=== PATIENT | male | born 1975 | race Hispanic/Latino ===

== ENCOUNTER 2022-05-09 12:50 | Emergency (ER) | payer BC ==
[~2022-05-09] VITALS: Ht 170.2 cm; Wt 133.4 kg
[2022-05-09] MEDS ORDERED: ACETAMINOPHEN 500 MG TABLET PO SCH (14:30)
[2022-05-09 15:00] VITALS: BP 141/72
[2022-05-09] MEDS ORDERED: CYCL10TA16 PO (15:03)
== END 2022-05-09 15:27 | disposition home or self-care (01) ==
LOC: EDH 12:50
DX: S86.112A Strain of other muscle(s) and tendon(s) of posterior muscle group at lower leg level, left leg, initial encounter (principal); E11.9 Type 2 diabetes mellitus without complications; I10 Essential (primary) hypertension; Z79.899 Other long term (current) drug therapy; X50.9XXA Other and unspecified overexertion or strenuous movements or postures, initial encounter; Y93.89 Activity, other specified; Y92.89 Other specified places as the place of occurrence of the external cause; Y99.8 Other external cause status
CPT/HCPCS: 29515; 93971

== ENCOUNTER 2023-11-23 03:10 | Emergency (ER) | payer BC ==
[~2023-11-23] VITALS: Ht 170.2 cm; Wt 127.0 kg
[~2023-11-23 03:10] MED LIST: CYCL10TA16 PO
[2023-11-23 05:34] VITALS: BP 132/88; PULSE 87; RESP 20; O2SAT 100
[2023-11-23] MEDS ORDERED: CLIN-141 PO (05:57)
== END 2023-11-23 06:15 | disposition home or self-care (01) ==
LOC: EDH 03:10
DX: S82.401A Unspecified fracture of shaft of right fibula, initial encounter for closed fracture (principal); S01.01XA Laceration without foreign body of scalp, initial encounter; I10 Essential (primary) hypertension; F10.129 Alcohol abuse with intoxication, unspecified; E66.9 Obesity, unspecified; E11.9 Type 2 diabetes mellitus without complications; Z79.899 Other long term (current) drug therapy; Z68.30 Body mass index [BMI] 30.0-30.9, adult; Y90.9 Presence of alcohol in blood, level not specified; W18.09XA Striking against other object with subsequent fall, initial encounter; Y93.89 Activity, other specified; Y92.89 Other specified places as the place of occurrence of the external cause; Y99.8 Other external cause status
CPT/HCPCS: 12002; 70450; 72125; 73600